=== PATIENT | female | born 1975 | race Caucasian/White ===

== ENCOUNTER 2021-09-29 06:15 | Day surgery (SDC) | payer OTHER ==
[~2021-09-29] VITALS: Ht 154.9 cm; Wt 68.9 kg
[2021-09-29] MEDS ORDERED: BUPIVACAINE-MPF 0.25% 30 ML VIAL INJ ONE (07:27)
[2021-09-29] MEDS ORDERED: LIDOCAINE 1% 500 MG/50 ML VIAL ONE (07:27)
[2021-09-29] MEDS ORDERED: SEVOFLURANE 250 ML BTL INH ONE (07:54)
[2021-09-29] MEDS ORDERED: PROPOFOL 200 MG/20 ML VIAL IV ONE ×2 (07:54→08:39)
[2021-09-29] MEDS ORDERED: KETOROLAC 30 MG/ML VIAL ONE (07:54)
[2021-09-29] MEDS ORDERED: fentaNYL citrate 0.05 MG/ML VIAL ONE (08:32)
[2021-09-29] MEDS ORDERED: SUCCINYLCHOLINE CHLORIDE 200 MG/10 ML VIAL IVP ONE (08:39)
[2021-09-29] MEDS ORDERED: ONDANSETRON 4 MG/2 ML VIAL ONE (08:47)
[2021-09-29] MEDS ORDERED: diphenhydrAMINE 50 MG/ML VIAL IVP PRN (09:15)
[2021-09-29] MEDS ORDERED: LACTATED RINGERS 1,000 ML IV SCH (09:15)
[2021-09-29] MEDS ORDERED: hydrALAZINE 20 MG/ML VIAL IVP PRN (09:15)
[2021-09-29] MEDS ORDERED: LABETALOL 20 MG/4 ML VIAL IVP PRN (09:15)
[2021-09-29] MEDS ORDERED: METOCLOPRAMIDE 10 MG/2 ML INJ VIAL IVP PRN (09:15)
[2021-09-29] MEDS: HYDROmorphone 1 MG/ML AMP IVP PRN ×3 (09:15→09:35)
[2021-09-29] MEDS ORDERED: HYDROmorphone PFS 2 MG/ML SYR ONE (09:22)
== END 2021-09-29 12:40 | disposition home or self-care (01) ==
LOC: MDS 06:15 → MMU 06:21 → MDS 12:40
PROVIDERS: ATTEND Podiatrist Foot & Ankle Surgery
DX: M72.2 Plantar fascial fibromatosis (principal); M76.62 Achilles tendinitis, left leg; Z79.899 Other long term (current) drug therapy
CPT/HCPCS: 29893; 71045; 81025; 93005; J0330; J0690; J1170; J1885; J2001; J2405; J2704; J3010; J3490; J7060; Q0092